=== PATIENT | female | born 1985 | race African-American/Black ===

== ENCOUNTER 2020-05-08 14:56 | Emergency (ER) | payer OTHER ==
[~2020-05-08] VITALS: Ht 154.9 cm; Wt 95.3 kg
[2020-05-08] MEDS ORDERED: PROMETH-CODEIN 65 ML PO (15:55)
[2020-05-08] MEDS ORDERED: PROAIR HFA8.5 GM INH (15:55)
[2020-05-08] MEDS ORDERED: PREDNISONE 20 M20 MG PO (15:58)
[2020-05-08 16:04] VITALS: BP 132/75
== END 2020-05-08 16:49 | disposition home or self-care (01) ==
LOC: ER 14:56
DX: R05 Cough (principal); F17.210 Nicotine dependence, cigarettes, uncomplicated; Z20.828 Contact with and (suspected) exposure to other viral communicable diseases; Z88.6 Allergy status to analgesic agent; Z88.8 Allergy status to other drugs, medicaments and biological substances